=== PATIENT | male | born 1950 | race Caucasian/White ===

== ENCOUNTER 2019-10-18 10:39 | Outpatient (CLI) | payer MEDICARE, OTHER, SELFPAY ==
--- NOTE | 2019-10-18 | XR_ITS ---
WS: [id number] CHEST 2 VIEWS HISTORY: COUGH, CONGESTION X FEW MONTHS COMPARISON: 10/20/2017 Lungs: Clear with no abnormality. No pleural effusion or pneumothorax. Benign granuloma seen in the a nterior thorax on the lateral projection. Cardiac size: Normal. Mediastinum/Aorta: Mild atherosclerosis aorta. Bones: Normal. XR/XR chest 2V* [id number] IMPRESSION: Stable chest with no acute cardiopulmonary disease.
== END 2019-10-18 10:40 | disposition home or self-care (01) ==
LOC: RADOUTREAD 13:07
PROVIDERS: Family Provider Family Medicine; PCP Family Medicine; Visit Provider Nurse Practitioner
DX: Z76.89 Persons encountering health services in other specified circumstances (principal)

== ENCOUNTER 2021-01-02 09:15 | Outpatient (CLI) | payer MEDICARE, OTHER, SELFPAY ==
--- NOTE | 2021-01-02 09:44 | XR_ITS ---
WS: [id number] Left shoulder, 3 views, 01/02/2021 Clinical Data: L SHOULDER PAIN Comparison: None. Findings: No fractures or dislocations are seen. The AC joint is normal. The adjacent left clavicle, left scapu la and ribs are normal. The soft tissues are unremarkable. XR/XR shoulder LT min 2V* [id number] Impression: Negative left shoulder.
[2021-01-02 10:13] LABS: Basophils # 0.2 10^3/uL (0.0-0.1); Basophils % 1.8 %; Eosinophils # 0.5 10^3/uL (0.0-0.8); Eosinophils % 6.6 %; Hemoglobin 15.2 g/dL (11.7-16.6); Lymphocytes # 2.8 10^3/uL (0.8-4.8); Lymphocytes % 33.7 %; Mean Corpuscular HGB Conc 34.5 g/dL (30.0-36.0); Mean Corpuscular Hemoglobin 29.5 pg (28.0-34.0); Mean Corpuscular Volume 85.3 fL (80-94); Mean Platelet Volume 9.3 fL (7.4-10.4); Monocytes # 1.1 10^3/uL (0.2-0.9); Monocytes % 13.2 %; Neutrophils # 3.65 10^3/uL (1.8-7.7); Neutrophils % 44.5 %; Nucleated Red Blood Cells % 0 %; Platelet Count 237 10^3/cmm (130-400); Red Blood Count 5.16 10^6/uL (4.1-5.3); Red Cell Distribution Width 13.3 % (12.1-15.1); White Blood Count 8.2 10^3/uL (4.0-10.0)
[2021-01-02 10:53] LABS: Alanine Aminotransferase 38 U/L (0-41); Albumin Level 4.5 g/dL (3.5-5.2); Alkaline Phosphatase 110 IU/L (40-130); Anion Gap 13.3 (5-19); Aspartate Amino Transferase 27 U/L (0-40); Blood Urea Nitrogen 14 mg/dL (8-23); Calcium 8.9 mg/dL (8.5-10.5); Carbon Dioxide 26 mmol/L (22-29); Chloride 103 mmol/L (98-107); Chol HDL Ratio 3.58 mg/dL (1.0-5.00); Cholesterol 197 mg/dL (0-200); Glomerular Filtration Rate 95.6 mL/min (90-130); Glucose 84 mg/dL (65-115); HDL Cholesterol 55 mg/dL (60-100); LDL Cholesterol Calculated 111 mg/dL (50-129); LDL HDL Ratio 2.02 RATIO (0.00-3.22); Osmolality Calculated 286 mOsm/kg (285-295); Potassium 4.3 mmol/L (3.5-5.1); Sodium 138 mmol/L (136-145); Total Bilirubin 0.5 mg/dL (0.15-1.2); Total Protein 7.5 g/dL (6.6-8.7); Triglycerides 157 mg/dL (0-150)
== END 2021-01-02 09:16 | disposition home or self-care (01) ==
PROVIDERS: PCP Family Medicine; Visit Provider Family Medicine
DX: Z12.5 Encounter for screening for malignant neoplasm of prostate (principal); I10 Essential (primary) hypertension; M25.512 Pain in left shoulder
CPT/HCPCS: 36415; 73030; 80053; 80061; 84443; 85025

== ENCOUNTER 2021-06-18 10:01 | Outpatient (CLI) | payer MEDICARE, OTHER, SELFPAY ==
[2021-06-19 17:38] LABS: Alternaria Alternata (M6) Ige <0.10 kU/L; Alternaria Class 0; Bermuda Class 0; Bermuda Grass (G2) Ige <0.10 kU/L; Cat Dander (E1) Ige 0.16 kU/L; Cat Dander Class 0/1; D. Farinae Class 1; Dermatophagoides Class 1; Dermatophagoides Farinae (D2) 0.56 kU/L; Dermatophagoides Pteronyssinus 0.56 kU/L; Dog Dander (E5) Ige 0.19 kU/L; Dog Dander Class 0/1; House Dust (Hollister- Stier) 0.11 kU/L; House Dust Class 0/1; Immunoglobulin E 1007 kU/L (<OR=114); Johnson Grass (G10) Ige <0.10 kU/L; Johnson Grass Cl 0; June Grass Class 0; June Grass(Kentucky Blue) (G8) <0.10 kU/L; Meadow Fescue (G4) Ige <0.10 kU/L; Meadow Fescue Class 0; Mucor Racemosus Class 0; Orchard Grass (Cocksfoot) (G3) <0.10 kU/L; Penicillium Class 0; Penicillium Notatum (M1) Ige <0.10 kU/L; Perennial Rye Grass (G5) Ige <0.10 kU/L; Perennial Rye Grass Class 0; Sweet Vernal Class 0; Sweet Vernal Grass (G1) Ige <0.10 kU/L; Timothy Grass (G6) Ige <0.10 kU/L; Timothy Grass Class 0
[2021-06-20 17:03] LABS: Elm (T8) Ige <0.10 kU/L; Elm Class 0; English Plantain (W9) Ige <0.10 kU/L; English Plantain Class 0; Immunoglobulin E 949 kU/L (<OR=114); Lamb'S Quarters (Goose Foot) <0.10 kU/L; Lamb'S Quarters Class 0; Maple (Box Elder) (T1) Ige <0.10 kU/L; Maple Class 0; Oak (T7) Ige <0.10 kU/L; Oak Class 0; Ragweeed Class 0/1; Rough Marsh Elder (W16) Ige <0.10 kU/L; Rough Marsh Elder Class 0
[2021-06-23 19:27] LABS: Aspergillus Fumigatus, Igg Ab, 13.9 mg/L (<=102)
== END 2021-06-18 10:02 | disposition home or self-care (01) ==
PROVIDERS: PCP Family Medicine; Visit Provider Internal Medicine Critical Care Medicine
DX: R06.02 Shortness of breath (principal); J45.909 Unspecified asthma, uncomplicated
CPT/HCPCS: 36415; 82785; 86003

== ENCOUNTER → 2021-11-14 08:26 | Outpatient (BNVA) | payer MEDICARE, OTHER, SELFPAY | PROVIDERS: PCP Family Medicine; Visit Provider Internal Medicine Critical Care Medicine | DX: J45.50 Severe persistent asthma, uncomplicated (principal); J30.9 Allergic rhinitis, unspecified; I10 Essential (primary) hypertension; E78.5 Hyperlipidemia, unspecified; Z87.891 Personal history of nicotine dependence | CPT/HCPCS: 99214 ==

== ENCOUNTER 2021-12-16 12:32 | Outpatient (CLI) | payer MEDICARE, OTHER, SELFPAY ==
--- NOTE | 2021-12-16 13:31 | PFTS_ITS ---
Date of Study:12/16/21 Date of Dictation: MECHANICS: Forced vital capacity (FVC) is normal. Forced expiratory volume in one second (FEV1) is reduced. FEV1/FVC is reduced. FLOW VOLUME LOOP: Reduced flow at all lung volumes with scooping. LUNG VOLUMES: Total lung capacity (TLC) is reduced. Residual volume (RV) is reduced. DIFFUSING CAPACITY FOR CARBON MONOXIDE: Mildly reduced. INTERPRETATION: The postbronchodilator spirometry is consistent with moderate obstruction. There is no significant postbronchodilator response. The lung volumes are consistent with very mild restriction. Gas exchange (DLCO) is mildly reduced. MTDD
== END 2021-12-16 12:33 | disposition home or self-care (01) ==
LOC: RT 12:36
PROVIDERS: PCP Family Medicine; Visit Provider Internal Medicine Critical Care Medicine
DX: J45.50 Severe persistent asthma, uncomplicated (principal)
CPT/HCPCS: 94060; 94726; 94729; J7611

== ENCOUNTER → 2021-12-26 09:57 | Outpatient (BNVA) | payer MEDICARE, OTHER, SELFPAY | PROVIDERS: PCP Family Medicine; Visit Provider Internal Medicine Critical Care Medicine | DX: J45.50 Severe persistent asthma, uncomplicated (principal); J30.9 Allergic rhinitis, unspecified; Z87.891 Personal history of nicotine dependence; I10 Essential (primary) hypertension; E78.5 Hyperlipidemia, unspecified | CPT/HCPCS: 99214 ==

== ENCOUNTER 2022-01-31 11:21 | Emergency (ER) | payer MEDICARE, OTHER, SELFPAY ==
[2022-01-31 11:45] VITALS: BP 148/81; PULSE 89; RESP 16; TEMP 36.6; O2SAT 91; BMI 30.9
--- NOTE | 2022-01-31 12:18 | XRR_ITS ---
PROCEDURE INFORMATION: Exam: XR Chest Exam date and time: 01/31/2022 2:50 PM Age: 71 years old Clinical indication: Shortness of breath; Additional info: SOB TECHNIQUE: Imaging protocol: XR of the chest. Views: 1 view. COMPARISON: CR XR chest 2V* [id number] 10/18/2019 10:39 AM FINDINGS: Lungs: Left lower lobe atelectasis versus minimal infiltrate. Pleural spaces: Unremarkable. No pleural effusion. No pneumothorax. Heart/Mediastinum: Unremarkable. No cardiomegaly. Bones/joints: Unremarkable. XR/XR chest 1V portable [id number] IMPRESSION: Left lower lobe atelectasis versus minimal infiltrate.
--- NOTE | 2022-01-31 12:19 | ECG_ITS ---
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 Measurements Intervals [place] Rate: 77 P: 65 CT: 155 QRS: -34 QRSD: 113 T: 66 QT: 397 QTc: 450 Interpretive Statements SINUS RHYTHM WITH OCCASIONAL SUPRAVENTRICULAR PREMATURE COMPLEXES POSSIBLE LEFT ATRIAL ENLARGEMENT [-0.1mV P-WAVE IN V1/V2] LEFT AXIS DEVIATION [QRS AXIS < -30] INCOMPLETE RIGHT BUNDLE BRANCH BLOCK [90+ ms QRS DURATION, TERMINAL R IN V1/V2, 40+ ms S IN I/aVL/V4/V5/V6] No previous ECG available for comparison Electronically Signed On 02-01-2022 9:20:18 CDT by Young Zamora M.D. [id number]
--- NOTE | 2022-01-31 14:19 | ECG_ITS ---
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 Measurements Intervals [place] Rate: 67 P: 60 AL: 163 QRS: -25 QRSD: 113 T: 63 QT: 411 QTc: 436 Interpretive Statements SINUS RHYTHM BORDERLINE LEFT AXIS DEVIATION [QRS AXIS < -20] INCOMPLETE RIGHT BUNDLE BRANCH BLOCK [90+ ms QRS DURATION, TERMINAL R IN V1/V2, 40+ ms S IN I/aVL/V4/V5/V6] Compared to ECG 01/31/2022 13:22:16 No significant changes Electronically Signed On 02-01-2022 9:26:19 CDT by Young Zamora M.D. [id number]
--- NOTE | 2022-01-31 14:23 | W.ED.SOB ---
HPI - SOB/Dyspnea General: Chief Complaint: Shortness of Breath/Dyspnea Stated Complaint: Hurts when he breaths and back pains Time Seen by Provider: 01/31/22 14:22 Source: patient Mode of arrival: ambulatory Limitations: no limitations History of Present Illness: HPI Narrative: 71-year-old male presents emergency complaining of shortness of breath. Is completely resolved now he says exacerbated with any exertion. Patient relates he has a history of asthma. He has had a nonproductive cough recently but is sputum production is not significantly changed. He has seen pulmonology for his cough. No vomiting no diarrhea. No chest pain at this time. No history of coronary artery disease. MD elicited complaint: shortness of breath and cough Pertinent past history: asthma Onset (ago): day(s) Context: occurred during exertion Timing: intermittent Severity: moderate Exacerbating factors: nothing Relieving factors: nothing Known history of: asthma Associated symptoms: Reports cough; Deny abdominal pain, chest congestion, chest pain, diaphoresis, dizziness, extremity pain, fever(s), hemoptysis, lightheadedness, myalgias, nausea, orthopnea, palpitations, paresthesias, polydipsia, polyuria, rash, sense of impending doom, syncope or vomiting Treatment prior to arrival: none Review of Systems Const: Denies: fever(s), chills or diaphoresis ENMT: Denies: throat pain, ear or mastoid pain, nasal discharge or nasal congestion Card: Denies: chest pain, palpitations, lightheadedness, syncope or orthopnea Resp: Reports: dyspnea, non-productive cough and wheezing; Denies: productive cough, hemoptysis or chest congestion GI: Denies: abdominal pain, nausea or vomiting : Denies: flank pain, difficulty urinating, dysuria, urinary frequency or urinary urgency Musc: Denies: extremity pain Skin/Breast: Denies: rash or pruritus Neuro: Denies: dizziness Endo: Denies: polyuria or polydipsia PFSH ED PFSH: Medical History Asthma Atypical chest pain Dyslipidemia HTN (hypertension) Leg swelling Reactive airway disease Family History Other Carotid stenosis Hyperlipidemia Hypertension Social History (Reviewed 02/10/22 @ 06:13 by DIANE Pineda Smoking and tobacco status: former smoker Quit status (tobacco): has quit using tobacco Year quit tobacco: 1980 Former quit date comment: Hx of 1 PPD x 15 Years, started age 20 years Second hand smoke exposure: No Smoking risk assessment/counseling performed?: No Alcohol intake: current Counseling given: No Counseling given: No Lives independently: Yes Household members: spouse Marital status: Current occupational status: employed History of recent travel: No Current gender identity: Male Physical Exam Const: GENERAL APPEARANCE: cooperative and comfortable ORIENTATION/CONSCIOUSNESS: Yes awake, Yes oriented to person, Yes oriented to place and Yes oriented to time HENMT: COMMON NORMALS: normocephalic, atraumatic and hearing grossly normal bilaterally HEAD & SCALP: normocephalic and atraumatic Neck/C-Spine: COMMON NORMALS: no JVD Resp: COMMON NORMALS: normal respiratory effort, No retractions, No use of accessory muscles and clear to auscultation bilaterally AUSCULTATION: clear to auscultation bilaterally Cardio: COMMON NORMALS: no JVD, regular rate, regular rhythm and No murmurs present (Cardio) RATE: regular rate RHYTHM: regular rhythm GI: COMMON NORMALS: Soft to palpation and No hepatosplenomegaly present AUSCULTATION: Yes normoactive bowel sounds PALPATION: Yes Soft to palpation, No Tenderness to palpation present (GI), No Guarding due to palpation present (GI) and Yes No hepatosplenomegaly present Extremity: COMMON NORMALS: normal to inspection, capillary refill normal, no clubbing, cyanosis or edema, no calf tenderness and no pedal edema Neuro: SENSORIUM/ORIENTATION: Yes oriented to person, Yes oriented to place and Yes oriented to time Skin: COMMON NORMALS: no rashes or lesions noted GENERAL SKIN EXAM: no rashes or lesions noted Course Vital Signs: Vital signs: Vital Signs Temperature 97.9 F 01/31/22 11:45 Pulse Rate 72 01/31/22 16:00 Respiratory Rate 16 01/31/22 16:00 Blood Pressure 143/88 01/31/22 16:00 Pulse Oximetry 92 01/31/22 18:27 MDM - SOB/Dyspnea Medical Decision Making Patient improving. Labs and imaging reviewed. Recommend steroid Dosepak continue to use Advair and albuterol as needed.Follow-up with primary care. Chest x-ray read as questionable pneumonia. Believe its more likely to be atelectasis related to his asthma. Return if he has fever. Medical Records I reviewed the patient's medical records. Lab Data I reviewed the patient's lab results. : 01/31/22 14:30 01/31/22 14:30 Labs/Radiology: Radiology Impressions Chest X-Ray 01/31/22 12:18 IMPRESSION: Left lower lobe atelectasis versus minimal infiltrate. Laboratory Results WBC 12.4 10^3/uL (4.0-10.0) H 01/31/22 14:30 RBC 5.32 10^6/uL (4.1-5.3) H 01/31/22 14:30 Hgb 15.6 g/dL (11.7-16.6) 01/31/22 14:30 Hct 45.2 % (42.0-52.0) 01/31/22 14:30 MCV 85.0 fl (80-94) 01/31/22 14:30 MCH 29.3 pg (28.0-34.0) 01/31/22 14:30 MCHC 34.5 g/dL (30.0-36.0) 01/31/22 14:30 RDW 13.3 % (12.1-15.1) 01/31/22 14:30 Plt Count 271 10^3/cmm (130-400) 01/31/22 14:30 MPV 9.3 fL (7.4-10.4) 01/31/22 14:30 Neut % (Auto) 62.9 % 01/31/22 14:30 Lymph % (Auto) 25.1 % 01/31/22 14:30 Imperial % (Auto) 10.2 % 01/31/22 14:30 Eos % (Auto) 0.5 % 01/31/22 14:30 Baso % (Auto) 1.0 % 01/31/22 14:30 Neut # (Auto) 7.79 10^3/uL (1.8-7.7) H 01/31/22 14:30 Lymph # (Auto) 3.1 10^3/uL (0.8-4.8) 01/31/22 14:30 Imperial # (Auto) 1.3 10^3/uL (0.2-0.9) H 01/31/22 14:30 Eos # (Auto) 0.1 10^3/uL (0.0-0.8) 01/31/22 14:30 Baso # (Auto) 0.1 10^3/uL (0.0-0.1) 01/31/22 14:30 Nucleated RBC % (auto) 0 % 01/31/22 14:30 Nucleated RBCs # 0.0 /100WBC 01/31/22 14:30 D-Dimer 0.39 ug/mIFEU (0-0.59) 01/31/22 14:30 Sodium 135 mmol/L (136-145) L 01/31/22 14:30 Potassium 3.9 mmol/L (3.5-5.1) 01/31/22 14:30 Chloride 99 mmol/L (98-107) 01/31/22 14:30 Carbon Dioxide 22 mmol/L (22-29) 01/31/22 14:30 Anion Gap 17.9 (5-19) 01/31/22 14:30 BUN 13 mg/dL (8-23) 01/31/22 14:30 Creatinine 0.9 mg/dL (0.7-1.2) 01/31/22 14:30 GFR Calculation Not Reportable 01/31/22 14:30 Glucose 108 mg/dL (65-115) 01/31/22 14:30 Calculated Osmolality 281 mOsm/kg (285-295) L 01/31/22 14:30 Calcium 9.3 mg/dL (8.5-10.5) 01/31/22 14:30 Total Bilirubin 0.6 mg/dL (0.15-1.2) 01/31/22 14:30 AST 23 U/L (0-40) 01/31/22 14:30 ALT 34 U/L (0-41) 01/31/22 14:30 Alkaline Phosphatase 106 IU/L (40-130) 01/31/22 14:30 Troponin T Baseline 9 ng/L (0-15) 01/31/22 14:30 Troponin T 120 Minute 8.72 ng/L (0-15) 01/31/22 17:10 Delta Troponin T -0.28 ABS# (0-10) L 01/31/22 17:10 NT-Pro-B Natriuret Pep 68 pg/mL (0-125) 01/31/22 14:30 Total Protein 8.2 g/dL (6.6-8.7) 01/31/22 14:30 Albumin 4.4 g/dL (3.5-5.2) 01/31/22 14:30 Globulin 3.8 g/dL (1.3-4.6) 01/31/22 14:30 Discharge Plan Discharge Patient Disposition: Home Clinical Impression: Asthma, HTN (hypertension) Condition: Stable Prescriptions: New Medrol (Cirilo) 4 mg tablets,dose pack See Rx Instructions .ROUTE .COMPLEX Qty: 21 0RF Rx Instructions: orally per package directions No Action diphenhydramine HCl [Benadryl] 25 mg capsule 25 mg PO TID PRN (Reason: Allergy Symptoms) 0RF Nucala 100 mg/mL syringe 100 mg SUBCUT .[id number] 360 Days Qty: 1 12RF omeprazole 20 mg capsule,delayed release(DR/EC) 20 mg PO DAILY 0RF Advair HFA 115-21 mcg/actuation HFA aerosol inhaler 2 puff inhalation Q12H 30 Days Qty: 12 3RF nifedipine [Procardia XL] 60 mg tablet extended release 24hr 60 mg PO DAILY 30 Days Qty: 30 5RF albuterol sulfate 2.5 mg /3 mL (0.083 %) solution for nebulization 2.5 mg inhalation Q4H PRN (Reason: shortness of breath or wheezing) Qty: 180 5RF albuterol sulfate [Ventolin HFA] 90 mcg/actuation HFA aerosol inhaler 2 puff INHALATION Q6H PRN (Reason: shortness of breath or wheezing) Qty: 8.5 6RF montelukast 10 mg tablet 10 mg PO DAILY 30 Days Qty: 30 4RF Flonase Allergy Relief 50 mcg/actuation spray,suspension 1 spray intranasal BID PRN (Reason: Nasal Congestion) 0RF Rx Instructions: administer into each nostril Discharge Orders: Discharge ED (Routine); Ordered 01/31/22 Ordered By: Maxime Carter Other Ambulatory Orders: DME: Oxygen (Order) Location: None Selected Ordered By: Maxime Carter Referrals: Bryan Pena DO [Primary Care Provider] - Discharge Diet: Usual diet Discharge Activity: Limit activity as instructed Patient Instructions: Opioid Safety Activity Restrictions/Additional Instructions: Follow-up with pulmonologywithin the next week return if you have further problems. Coding Level of Care Code ED Integration Engineer for [employer] Fwd Exam Comprehensive
--- NOTE | 2022-01-31 14:28 | PC.NURSE ---
no report at bedside assumed care of pt. pt is placed on continuous spo2, nibp, and cm.
[2022-01-31 14:48] LABS: Basophils # 0.1 10^3/uL (0.0-0.1); Eosinophils # 0.1 10^3/uL (0.0-0.8); Eosinophils % 0.5 %; Hematocrit 45.2 % (42.0-52.0); Hemoglobin 15.6 g/dL (11.7-16.6); Lymphocytes # 3.1 10^3/uL (0.8-4.8); Lymphocytes % 25.1 %; Mean Corpuscular HGB Conc 34.5 g/dL (30.0-36.0); Mean Corpuscular Hemoglobin 29.3 pg (28.0-34.0); Mean Platelet Volume 9.3 fL (7.4-10.4); Monocytes # 1.3 10^3/uL (0.2-0.9); Monocytes % 10.2 %; Neutrophils # 7.79 10^3/uL (1.8-7.7); Neutrophils % 62.9 %; Nucleated Red Blood Cells % 0 %; Platelet Count 271 10^3/cmm (130-400); Red Blood Count 5.32 10^6/uL (4.1-5.3); Red Cell Distribution Width 13.3 % (12.1-15.1); White Blood Count 12.4 10^3/uL (4.0-10.0)
[2022-01-31 15:03] LABS: D Dimer 0.39 ug/mIFEU (0-0.59)
[2022-01-31 15:10] LABS: Troponin(5th) Baseline 9 ng/L (0-15)
[2022-01-31 15:15] LABS: Alanine Aminotransferase 34 U/L (0-41); Albumin Level 4.4 g/dL (3.5-5.2); Alkaline Phosphatase 106 IU/L (40-130); Anion Gap 17.9 (5-19); Aspartate Amino Transferase 23 U/L (0-40); Blood Urea Nitrogen 13 mg/dL (8-23); Calcium 9.3 mg/dL (8.5-10.5); Carbon Dioxide 22 mmol/L (22-29); Chloride 99 mmol/L (98-107); Globulin 3.8 g/dL (1.3-4.6); Glucose 108 mg/dL (65-115); NT Pro B Type Natriuretic Pept 68 pg/mL (0-125); Osmolality Calculated 281 mOsm/kg (285-295); Potassium 3.9 mmol/L (3.5-5.1); Sodium 135 mmol/L (136-145); Total Bilirubin 0.6 mg/dL (0.15-1.2); Total Protein 8.2 g/dL (6.6-8.7)
--- NOTE | 2022-01-31 15:35 | PC.NURSE ---
While at bedside patient is sitting on the side of the bed. Patient is in no apparent distress. Patient denies any further needs at this time.
[2022-01-31 16:00] VITALS: BP 143/88; PULSE 72; RESP 16; O2SAT 97
--- NOTE | 2022-01-31 16:40 | PC.NURSE ---
Phone call the lab spoke with female who stated that she would come in and draw troponin blood draw.
[2022-01-31 17:47] LABS: Troponin 5 2HR 8.72 ng/L (0-15)
[2022-01-31 18:09] LABS: Troponin 5 2HR Delta -0.28 ABS# (0-10)
--- NOTE | 2022-01-31 18:16 | PC.NURSE ---
Attempted to discharge patient. Patient is no longer in room. Will return later.
[2022-01-31 18:27] VITALS: O2SAT 86; O2SAT 92; O2SAT 93
--- NOTE | 2022-01-31 18:29 | PC.NURSE ---
Unable to discharge patient due to need of home oxygen.
== END 2022-01-31 19:48 | disposition home or self-care (01) ==
PROVIDERS: Emergency Medicine; Emergency Provider Family Medicine; PCP Family Medicine
DX: J45.909 Unspecified asthma, uncomplicated (principal); I10 Essential (primary) hypertension; Z87.891 Personal history of nicotine dependence
CPT/HCPCS: 71045; 80053; 83880; 84484; 85025; 85378; 93005; 99284

== ENCOUNTER → 2022-03-27 10:19 | Outpatient (BNVA) | payer MEDICARE, OTHER, SELFPAY | PROVIDERS: PCP Family Medicine; Visit Provider Internal Medicine Critical Care Medicine | DX: J45.50 Severe persistent asthma, uncomplicated (principal); J30.9 Allergic rhinitis, unspecified; Z87.891 Personal history of nicotine dependence | CPT/HCPCS: 99214 ==

== ENCOUNTER → 2022-08-10 08:59 | Outpatient (BNVA) | payer MEDICARE, OTHER, SELFPAY | PROVIDERS: PCP Family Medicine; Visit Provider Internal Medicine Pulmonary Disease | DX: J45.50 Severe persistent asthma, uncomplicated (principal); J30.9 Allergic rhinitis, unspecified | CPT/HCPCS: 99214 ==

== ENCOUNTER → 2022-12-15 12:34 | Outpatient (BNVA) | payer MEDICARE, OTHER, SELFPAY | PROVIDERS: PCP Family Medicine; Visit Provider Internal Medicine Pulmonary Disease | DX: J45.50 Severe persistent asthma, uncomplicated (principal); J30.9 Allergic rhinitis, unspecified; Z87.891 Personal history of nicotine dependence | CPT/HCPCS: 99214 ==

== ENCOUNTER → 2023-02-08 09:49 | Outpatient (BNVA) | payer MEDICARE, OTHER, SELFPAY | PROVIDERS: PCP Family Medicine; Visit Provider Internal Medicine Pulmonary Disease | DX: J45.50 Severe persistent asthma, uncomplicated (principal); J30.9 Allergic rhinitis, unspecified; Z87.891 Personal history of nicotine dependence | CPT/HCPCS: 99214 ==

== ENCOUNTER → 2023-09-13 08:06 | Outpatient (BNVA) | payer MEDICARE, OTHER, SELFPAY | PROVIDERS: PCP Family Medicine; Visit Provider Internal Medicine Pulmonary Disease | DX: J45.50 Severe persistent asthma, uncomplicated (principal); J30.9 Allergic rhinitis, unspecified; Z87.891 Personal history of nicotine dependence | CPT/HCPCS: 99214 ==

== ENCOUNTER → 2024-04-07 08:54 | Outpatient (BNVA) | payer MEDICARE, OTHER, SELFPAY | PROVIDERS: PCP Family Medicine; Visit Provider Internal Medicine Critical Care Medicine | DX: J44.89 Other specified chronic obstructive pulmonary disease (principal); J98.4 Other disorders of lung; K21.9 Gastro-esophageal reflux disease without esophagitis; R06.09 Other forms of dyspnea; E66.9 Obesity, unspecified; Z68.31 Body mass index [BMI] 31.0-31.9, adult | CPT/HCPCS: 99214 ==

== ENCOUNTER 2024-05-04 12:38 | Outpatient (CLI) | payer MEDICARE, OTHER, SELFPAY ==
[2024-05-04 12:53] VITALS: PULSE 67; RESP 18; O2SAT 98
[2024-05-04] MEDS: albuterol 2.5 mg/3 mL Neb INHALATION (12:53)
== END 2024-05-04 12:39 | disposition home or self-care (01) ==
PROVIDERS: PCP Family Medicine; Visit Provider Internal Medicine Critical Care Medicine
DX: J44.89 Other specified chronic obstructive pulmonary disease (principal); J98.4 Other disorders of lung; K21.9 Gastro-esophageal reflux disease without esophagitis; R06.09 Other forms of dyspnea
CPT/HCPCS: 94060; 94726; 94729; J7613

== ENCOUNTER 2024-05-05 08:06 | Outpatient (CLI) | payer MEDICARE, OTHER, SELFPAY ==
[2024-05-05 08:43] LABS: Basophils # 0.1 10^3/uL (0.0-0.1); Basophils % 1.8 %; Eosinophils # 0.1 10^3/uL (0.0-0.8); Eosinophils % 1.3 %; Hematocrit 44.3 % (37-53); Lymphocytes # 1.8 10^3/uL (0.8-4.8); Lymphocytes % 27.2 %; Mean Corpuscular HGB Conc 33.4 g/dL (30-55); Mean Corpuscular Hemoglobin 29.4 pg (27-33); Mean Corpuscular Volume 87.9 fl (82-101); Mean Platelet Volume 9.2 fL (7.4-10.4); Monocytes # 0.8 10^3/uL (0.2-0.9); Monocytes % 12.6 %; Neutrophils # 3.79 10^3/uL (1.8-7.7); Neutrophils % 56.8 %; Nucleated Red Blood Cells % 0 %; Platelet Count 236 10^3/cmm (157-399); Red Blood Count 5.04 10^6/uL (3.85-5.65); Red Cell Distribution Width 13.3 % (12.1-15.1); White Blood Count 6.68 10^3/uL (3.29-11.43)
== END 2024-05-05 08:07 | disposition home or self-care (01) ==
LOC: LAB 08:08
PROVIDERS: PCP Family Medicine; Visit Provider Internal Medicine Critical Care Medicine
DX: J45.909 Unspecified asthma, uncomplicated (principal)
CPT/HCPCS: 36415; 85025

== ENCOUNTER → 2025-05-22 14:39 | Outpatient (BNVA) | payer MEDICARE, OTHER, SELFPAY | PROVIDERS: PCP Family Medicine; Visit Provider Internal Medicine | DX: J45.50 Severe persistent asthma, uncomplicated (principal); J98.4 Other disorders of lung; J30.9 Allergic rhinitis, unspecified; K21.9 Gastro-esophageal reflux disease without esophagitis; Z99.89 Dependence on other enabling machines and devices; Z87.891 Personal history of nicotine dependence | CPT/HCPCS: 99214 ==

== ENCOUNTER → 2025-08-16 15:55 | Outpatient (BNVA) | payer MEDICARE, OTHER, SELFPAY | PROVIDERS: PCP Family Medicine; Visit Provider Internal Medicine | DX: J45.50 Severe persistent asthma, uncomplicated (principal); J98.4 Other disorders of lung; K21.9 Gastro-esophageal reflux disease without esophagitis; J30.89 Other allergic rhinitis; Z87.891 Personal history of nicotine dependence | CPT/HCPCS: 99213; Q3014 ==